=== PATIENT | male | born 1965 | race Caucasian/White ===

== ENCOUNTER 2021-07-28 15:15 | Emergency (ER) | payer MEDICAID, MEDICARE ==
[~2021-07-28] VITALS: Ht 175.3 cm; Wt 85.0 kg
[2021-07-28 15:55] LABS: BASOPHILS % 0.6 % (0.0-2.0); EOSINOPHILS % 0.9 % (0.0-5.0); HEMATOCRIT. 44.5 % (42.0-52.0); HEMOGLOBIN. 14.9 g/dL (14.0-18.0); LYMPHOCYTES % 20.7 % (20.0-50.0); MEAN CORPUSCULAR HEMOGLOBIN 28.4 pg (28.0-32.0); MEAN CORPUSCULAR VOLUME 84.8 fL (80.0-94.0); MEAN PLATELET VOLUME 8.1 fl (7.4-10.4); MONOCYTES % 6.3 % (2.0-8.0); NEUTROPHILS % 71.5 % (40.0-76.0); PLATELET 195 x1000/uL (130-400); RED BLOOD CELL COUNT 5.25 mill/uL (4.7-6.1); RED CELL DISTRIBUTION WIDTH 13.7 % (11.6-14.6)
[2021-07-28] MEDS ORDERED: KETOROLAC 30MG/ML VIAL IV STA (15:55)
[2021-07-28] MEDS ORDERED: SODIUM CHLORIDE 0.9% 1,000 ML IV ONE (16:00)
[2021-07-28 16:03] LABS: CHLORIDE 105 mEq/L (98-107)
[2021-07-28 16:13] VITALS: BP 121/78
[2021-07-28 16:21] LABS: CLARITY URINE CLEAR (CLEAR); COLOR URINE YELLOW (YELLOW); KETONES URINE NEGATIVE (NEGATIVE); LEUKOCYTE ESTERASE URINE NEGATIVE (NEGATIVE); NITRITE URINE NEGATIVE (NEGATIVE); OCCULT BLOOD URINE NEGATIVE (NEGATIVE); PH URINE 5.5 (4.5-8.0); PROTEIN URINE NEGATIVE (NEGATIVE); SPECIFIC GRAVITY URINE 1.012 (1.005-1.030); UROBILINOGEN URINE 0.2 E.U./dL (0.2-1.0)
[2021-07-28] MEDS ORDERED: POLY119P2 MT (20:56)
[2021-07-28] MEDS ORDERED: NITR-87 MT (20:56)
[2021-07-28] MEDS ORDERED: IBUP-2029 MT (20:56)
== END 2021-07-28 21:00 | disposition home or self-care (01) ==
LOC: ER 15:15
DX: K59.00 Constipation, unspecified (principal); R10.31 Right lower quadrant pain; R30.0 Dysuria
CPT/HCPCS: 36415; 74176; 80053; 81003; 83690; 85025; 87086; 96361; 96374; 99284; J1885; J7030

== ENCOUNTER 2021-07-29 09:59 | Inpatient (IN) | payer MEDICARE, MEDICAID ==
[~2021-07-29] VITALS: Ht 190.5 cm; Wt 102.1 kg
[~2021-07-29 09:59] MED LIST: IBUP-2029 MT; NITR-87 MT; POLY119P2 MT
[2021-07-29] MEDS ORDERED: KETOROLAC 30MG/ML VIAL IM STA (11:24)
[2021-07-29] MEDS ORDERED: POLYETHYLENE GLYCOL 3350 (17GM) 1 DOSE PACK PO ONE (11:30)
[2021-07-29] MEDS ORDERED: DOCUSATE SODIUM 100MG CAPSULE PO ONE (11:30)
[2021-07-29 11:39] LABS: BASOPHILS % 0.7 % (0.0-2.0); EOSINOPHILS % 0.9 % (0.0-5.0); HEMATOCRIT. 48.2 % (42.0-52.0); HEMOGLOBIN. 15.9 g/dL (14.0-18.0); LYMPHOCYTES % 21.3 % (20.0-50.0); MEAN CORPUSCULAR HEMOGLOBIN 28.4 pg (28.0-32.0); MEAN CORPUSCULAR VOLUME 86.3 fL (80.0-94.0); MEAN PLATELET VOLUME 8.1 fl (7.4-10.4); MONOCYTES % 7.3 % (2.0-8.0); NEUTROPHILS % 69.8 % (40.0-76.0); PLATELET 209 x1000/uL (130-400); RED BLOOD CELL COUNT 5.58 mill/uL (4.7-6.1)
[2021-07-29 11:48] LABS: CHLORIDE 107 mEq/L (98-107)
[2021-07-29] MEDS ORDERED: NA PHOS,M-B/NA PHOS,DI-BA ENEMA 118ML PR ONE (13:45)
[2021-07-29] MEDS ORDERED: SODIUM CHLORIDE 0.9% 1,000 ML IV ONE (14:45)
[2021-07-29 22:48] VITALS: BP 126/75
[2021-07-29] MEDS ORDERED: TRAMADOL 50MG TABLET PO PRN (23:30)
[2021-07-29] MEDS ORDERED: ONDANSETRON HCL 4MG/2ML INJ IV PRN (23:30)
[2021-07-29] MEDS ORDERED: ACETAMINOPHEN 325MG TABLET PO PRN (23:30)
[2021-07-29] MEDS ORDERED: NALOXONE HCL 0.4MG/ML VIAL IV PRN (23:45)
[2021-07-30] VITALS: BP 112/68
[2021-07-30 04:00] VITALS: BP 111/72
[2021-07-30] MEDS: LACTULOSE 20G/30ML UDC PO SCH ×2 (05:09→14:00)
[2021-07-30 08:00] VITALS: BP 140/84
[2021-07-30 08:27] LABS: BASOPHILS % 0.7 % (0.0-2.0); EOSINOPHILS % 2.9 % (0.0-5.0); HEMATOCRIT. 44.7 % (42.0-52.0); HEMOGLOBIN. 15.1 g/dL (14.0-18.0); LYMPHOCYTES % 33.4 % (20.0-50.0); MEAN CORPUSCULAR HEMOGLOBIN 29.1 pg (28.0-32.0); MEAN PLATELET VOLUME 8.9 fl (7.4-10.4); MONOCYTES % 10.7 % (2.0-8.0); NEUTROPHILS % 52.3 % (40.0-76.0); PLATELET 196 x1000/uL (130-400); RED CELL DISTRIBUTION WIDTH 13.6 % (11.6-14.6)
[2021-07-30 08:52] LABS: CHLORIDE 105 mEq/L (98-107)
[2021-07-30] MEDS ORDERED: ENOXAPARIN 40MG/0.4ML SYR SUBCUT SCH (09:00)
[2021-07-30] MEDS ORDERED: NA PHOS,M-B/NA PHOS,DI-BA ENEMA 118ML PR NR (09:00)
[2021-07-30] MEDS ORDERED: FAMOTIDINE 20MG TABLET PO SCH (09:00)
[2021-07-30] MEDS ORDERED: MAGNESIUM CITRATE 300ML SOLUTION PO SCH (10:00)
[2021-07-30] MEDS ORDERED: MINERAL OIL ENEMA 133ML PR SCH (10:00)
[2021-07-30 12:00] VITALS: BP 114/74
[2021-07-30 13:07] VITALS: BP 114/74
== END 2021-07-30 14:57 | disposition home or self-care (01) | DRG 392 ==
LOC: ER 09:59 → 6EST 16:15 → ENRESERV 19:56
PROVIDERS: ADMIT Internal Medicine; ATTEND Internal Medicine
DX: K59.00 Constipation, unspecified (principal)
CPT/HCPCS: 36415; 74018; 76770; 80048; 80053; 85025; 93005; 99285; J1650; J1885; J7030